=== PATIENT | female | born 1935 | race Caucasian/White ===

== ENCOUNTER 2016-10-28 12:45 | Outpatient (CLI) | END 2016-10-28 12:46 | disposition home or self-care (01) | LOC: CAR 12:45 | PROVIDERS: ATTEND Family Medicine | DX: J44.9 Chronic obstructive pulmonary disease, unspecified (principal) | CPT/HCPCS: 94761 ==

== ENCOUNTER 2018-05-03 10:13 | Day surgery (SDC) | payer OTHER ==
[2018-05-03] MEDS ORDERED: LIDOCAINE 1% 20 ML MDV ID STA (10:41)
[2018-05-03 10:49] VITALS: TEMP 97.9
[2018-05-03] MEDS ORDERED: DIPRIVAN 20 ML VIAL IVP ONE (12:10)
[2018-05-03] MEDS ORDERED: VERSED ONE (12:10)
[2018-05-03 14:49] VITALS: BP 125/67
--- NOTE | 2018-05-04 09:05 | OP ---
PROCEDURE: COLONOSCOPY TO THE CECUM WITH SNARE POLYPECTOMY. ENDOSCOPIST: Ferdinand STONER M.D. INDICATION: COLOGUARD POSITIVE. INSTRUMENT: PC-190. MEDICATION: PER ANESTHESIA. PROCEDURE: The patient was positioned for colonoscopy. The digital rectal exam was negative. The colonoscope was inserted through the anus and advanced to the cecum. The cecum was identified using the ileocecal valve and the appendiceal orifice as landmarks. The scope was slowly withdrawn through an adequately prepped colon. 5mm removed in the ascending colon using snare cautery. Retroflex exam was otherwise normal. [place] Bowel Prep Score equal 9. Withdraw time 8 minutes and 3 seconds. PLAN: 1. Repeat on as needed basis CC: Dr. Petr IGLESIAS
== END 2018-05-03 13:30 | disposition home or self-care (01) ==
LOC: SURG 10:13
PROVIDERS: ATTEND Internal Medicine Gastroenterology
DX: R19.5 Other fecal abnormalities (principal); D12.2 Benign neoplasm of ascending colon